=== PATIENT | male | born 1945 | race Caucasian/White ===

== ENCOUNTER 2020-08-15 12:45 | Inpatient (IN) ==
[2020-08-15] MEDS ORDERED: Ipratropium/Albuterol Neb 3 ML IH ONE (12:58)
[2020-08-15 13:15] LABS: Basophils % 0.3 %; Eosinophils # 0.1 K/mcL (0.0-0.6); Eosinophils % 0.8 %; Hematocrit 42.5 % (37.5-50.1); Hemoglobin 11.7 g/dL (12.9-16.9); Immature Granulocytes % 0.4 % (0-4); Lymphocytes # 1.2 K/mcL (0.6-4.6); Lymphocytes % 16.9 %; Mean Corpuscular HGB Conc 27.5 g/dL (31.6-35.5); Mean Corpuscular Hemoglobin 23.3 pg (28.0-33.3); Mean Corpuscular Volume 84.7 fL (83.0-100.0); Mean Platelet Volume 10.1 fL (9.4-12.4); Monocytes # 0.5 K/mcL (0.0-1.3); Monocytes % 6.7 %; Neutrophils # 5.4 K/mcL (1.6-8.9); Platelet Count 262 K/mcL (140-400); Red Blood Count 5.02 M/mcL (4.19-5.50); Red Cell Distribution Width 16.9 % (11.5-14.5); Segmented Neutrophils % 74.9 %; White Blood Count 7.2 K/mcL (4.3-11.1)
[2020-08-15 13:18] LABS: VBG HCO3 33 mEq/L (21-27); VBG PCO2 57 mmHg (41-51); VBG PH 7.37 pH Units (7.32-7.42); VBG PO2 87 mmHg (25-50)
[2020-08-15] MEDS ORDERED: Isovue-370 500 ML BOTTLE IVP ONE (13:31)
[2020-08-15 13:36] LABS: BUN/Creatinine Ratio 22 (6-26); Blood Urea Nitrogen 20 mg/dL (8-23); Calcium 9.2 mg/dL (8.6-10.3); Carbon Dioxide 32 mEq/L (23-29); Chloride 97 mEq/L (98-107); Glucose 106 mg/dL (70-105); Hypochromasia Present (Not Present); Osmolality,Calculated 287 (280-300); Platelet Estimate Normal (Normal); Potassium 4.6 mEq/L (3.5-5.1); Sodium 137 mEq/L (136-145); eGFR For African Americans > 60 (> 60); eGFR For Non-African Americans > 60 (> 60)
[2020-08-15 13:38] LABS: Troponin I < 0.03 ng/mL (< 0.04)
[2020-08-15 14:28] LABS: Adenovirus Not Detected (Not Detect); Bordetella Pertussis Not Detected (Not Detect); Chlamydophila pneumoniae Not Detected (Not Detect); Coronavirus 229E Not Detected (Not Detect); Coronavirus HKU1 Not Detected (Not Detect); Coronavirus NL63 Not Detected (Not Detect); Coronavirus OC43 Not Detected (Not Detect); Human Metapneumovirus Not Detected (Not Detect); Human Rhinovirus/Enterovirus Not Detected (Not Detect); Influenza A Subtype 2009 H1 Not Detected (Not Detect); Influenza B Not Detected (Not Detect); Mycoplasma pneumoniae Not Detected (Not Detect); Parainfluenza Virus 1 Not Detected (Not Detect); Parainfluenza Virus 2 Not Detected (Not Detect); Parainfluenza Virus 3 Not Detected (Not Detect); Parainfluenza Virus 4 Not Detected (Not Detect); Respiratory Syncytial Virus Not Detected (Not Detect); SARS-CoV-2 Not Detected (Not Detect)
[2020-08-15] MEDS ORDERED: Naloxone 0.4 MG/ML INJ IVP PRN (16:16)
[2020-08-15] MEDS ORDERED: Ondansetron 4 MG/2 ML VIAL IVP PRN (16:16)
[2020-08-15] MEDS ORDERED: *HR* Dextrose 50 % in Water (Vial) 50 ML VIAL IVP PRN (16:19)
[2020-08-15] MEDS ORDERED: D5% in Water 1,000 ML IVC PRN (16:19)
[2020-08-15] MEDS ORDERED: Dextrose Gel 15 GM/37.5 ML TUBE PO PRN ×2 (16:19)
[2020-08-15] MEDS ORDERED: Perflutren Lipid Microsphere 1.3 ML in 0.9 % Sodium Chloride 8.7 ML IVP PRN (16:57)
[2020-08-15] MEDS: Insulin LISPRO 300 UNITS/3 ML VIAL SUBQ SCH (17:30)
[2020-08-15] MEDS: *HR* OxyCODONE/APAP 10/325 TABLET PO SCH (17:37)
[2020-08-15] MEDS: Azithromycin 500 MG in 0.9 % Sodium Chloride 250 ML IVPB SCH (17:38)
[2020-08-15] MEDS: MethylPREDNISolone 40 MG/ML VIAL IVP SCH (17:38)
[2020-08-15] MEDS: *HR* Heparin 5,000 UNIT/ML VIAL SQ SCH (17:39)
[2020-08-15] MEDS: Gabapentin 300 MG CAPSULE PO SCH (20:28)
[2020-08-15] MEDS: Furosemide 20 MG/2 ML VIAL IVP SCH (20:28)
[2020-08-15] MEDS: traZODone 50 MG TABLET PO SCH (20:28)
[2020-08-15] MEDS: Budesonide/Formoterol 160/4.5 1 PUFF INH IH SCH (20:30)
[2020-08-15] MEDS: Ipratropium/Albuterol Neb 3 ML IH SCH ×2 (20:31→23:08)
[2020-08-16] MEDS: *HR* OxyCODONE/APAP 10/325 TABLET PO SCH ×5 (00:03→23:10)
[2020-08-16] MEDS: MethylPREDNISolone 40 MG/ML VIAL IVP SCH ×3 (00:04→17:32)
[2020-08-16] MEDS ORDERED: Methyl Salicylate/Menthol 85 APPL/85 GM TUBE TP PRN (00:15)
[2020-08-16] MEDS ORDERED: Methyl Salicylate/Menthol 57 APPL/57 GM TUBE TP PRN (00:17)
[2020-08-16] MEDS: Ipratropium/Albuterol Neb 3 ML IH SCH ×7 (03:50→23:17)
[2020-08-16 05:25] LABS: BUN/Creatinine Ratio 21 (6-26); Blood Urea Nitrogen 21 mg/dL (8-23); Carbon Dioxide 31 mEq/L (23-29); Chloride 93 mEq/L (98-107); Glucose 274 mg/dL (70-105); Magnesium 1.7 mg/dL (1.6-2.6); Osmolality,Calculated 287 (280-300); Phosphorous 3.2 mg/dL (2.7-4.5); Sodium 132 mEq/L (136-145); eGFR For African Americans > 60 (> 60); eGFR For Non-African Americans > 60 (> 60)
[2020-08-16] MEDS: *HR* Heparin 5,000 UNIT/ML VIAL SQ SCH ×2 (05:52→17:32)
[2020-08-16] MEDS: Gabapentin 300 MG CAPSULE PO SCH ×3 (09:14→20:22)
[2020-08-16] MEDS: DilTIAZem CD (24hr) 240 MG CAP.ER.24H PO SCH (09:15)
[2020-08-16] MEDS: Furosemide 20 MG/2 ML VIAL IVP SCH ×2 (09:15→20:27)
[2020-08-16] MEDS: Insulin LISPRO 300 UNITS/3 ML VIAL SUBQ SCH ×3 (09:24→17:36)
[2020-08-16] MEDS: Budesonide/Formoterol 160/4.5 1 PUFF INH IH SCH ×2 (11:05→19:45)
[2020-08-16] MEDS: Azithromycin 500 MG in 0.9 % Sodium Chloride 250 ML IVPB SCH (17:33)
[2020-08-16] MEDS: traZODone 50 MG TABLET PO SCH (20:22)
[2020-08-16] MEDS: Insulin DETEMIR 100 UNIT/ML X5UNITS SUBQ SCH (20:23)
[2020-08-17] MEDS: MethylPREDNISolone 40 MG/ML VIAL IVP SCH ×4 (01:15→23:44)
[2020-08-17] MEDS: Ipratropium/Albuterol Neb 3 ML IH SCH ×6 (03:47→23:24)
[2020-08-17] MEDS: *HR* Heparin 5,000 UNIT/ML VIAL SQ SCH ×2 (06:13→16:47)
[2020-08-17] MEDS: *HR* OxyCODONE/APAP 10/325 TABLET PO SCH ×4 (06:13→23:44)
[2020-08-17] MEDS: Budesonide/Formoterol 160/4.5 1 PUFF INH IH SCH ×2 (07:28→19:42)
[2020-08-17] MEDS: DilTIAZem CD (24hr) 240 MG CAP.ER.24H PO SCH (08:37)
[2020-08-17] MEDS: Gabapentin 300 MG CAPSULE PO SCH ×3 (08:37→21:33)
[2020-08-17] MEDS: Furosemide 20 MG/2 ML VIAL IVP SCH ×2 (08:38→21:33)
[2020-08-17] MEDS: Insulin LISPRO 300 UNITS/3 ML VIAL SUBQ SCH ×3 (08:39→16:40)
[2020-08-17] MEDS: Insulin DETEMIR 100 UNIT/ML X5UNITS SUBQ SCH ×2 (08:42→21:34)
[2020-08-17] MEDS: Azithromycin 500 MG in 0.9 % Sodium Chloride 250 ML IVPB SCH (16:41)
[2020-08-17] MEDS: traZODone 50 MG TABLET PO SCH (21:33)
[2020-08-18 02:27] LABS: Basophils % 0.1 %; Hematocrit 44.1 % (37.5-50.1); Hemoglobin 12.2 g/dL (12.9-16.9); Immature Granulocytes % 0.3 % (0-4); Lymphocytes # 0.3 K/mcL (0.6-4.6); Lymphocytes % 4.6 %; Mean Corpuscular HGB Conc 27.7 g/dL (31.6-35.5); Mean Corpuscular Hemoglobin 23.1 pg (28.0-33.3); Mean Corpuscular Volume 83.4 fL (83.0-100.0); Mean Platelet Volume 10.8 fL (9.4-12.4); Monocytes # 0.2 K/mcL (0.0-1.3); Monocytes % 3.1 %; Neutrophils # 6.7 K/mcL (1.6-8.9); Platelet Count 212 K/mcL (140-400); Red Blood Count 5.29 M/mcL (4.19-5.50); Red Cell Distribution Width 17.1 % (11.5-14.5); Segmented Neutrophils % 91.9 %; White Blood Count 7.3 K/mcL (4.3-11.1)
[2020-08-18 02:46] LABS: BUN/Creatinine Ratio 35 (6-26); Blood Urea Nitrogen 34 mg/dL (8-23); Carbon Dioxide 33 mEq/L (23-29); Chloride 95 mEq/L (98-107); Glucose 270 mg/dL (70-105); Magnesium 2.1 mg/dL (1.6-2.6); Osmolality,Calculated 297 (280-300); Phosphorous 3.7 mg/dL (2.7-4.5); Potassium 4.8 mEq/L (3.5-5.1); Sodium 135 mEq/L (136-145); eGFR For African Americans > 60 (> 60); eGFR For Non-African Americans > 60 (> 60)
[2020-08-18 03:30] LABS: Hypochromasia Present (Not Present); Platelet Estimate Normal (Normal)
[2020-08-18] MEDS: Ipratropium/Albuterol Neb 3 ML IH SCH ×4 (03:34→15:31)
[2020-08-18] MEDS: *HR* OxyCODONE/APAP 10/325 TABLET PO SCH ×3 (05:38→16:22)
[2020-08-18] MEDS: *HR* Heparin 5,000 UNIT/ML VIAL SQ SCH ×2 (05:38→16:29)
[2020-08-18] MEDS: Budesonide/Formoterol 160/4.5 1 PUFF INH IH SCH (07:24)
[2020-08-18] MEDS: Furosemide 20 MG/2 ML VIAL IVP SCH (07:58)
[2020-08-18] MEDS: MethylPREDNISolone 40 MG/ML VIAL IVP SCH ×2 (07:58→16:22)
[2020-08-18] MEDS: Gabapentin 300 MG CAPSULE PO SCH ×2 (07:58→16:22)
[2020-08-18] MEDS: DilTIAZem CD (24hr) 240 MG CAP.ER.24H PO SCH (07:58)
[2020-08-18] MEDS: Insulin DETEMIR 100 UNIT/ML X5UNITS SUBQ SCH (07:58)
[2020-08-18] MEDS: Insulin LISPRO 300 UNITS/3 ML VIAL SUBQ SCH ×3 (07:59→16:30)
[2020-08-18] MEDS ORDERED: *HR* Metoprolol 5 MG/5 ML VIAL IVP ONE ×2 (08:56→08:57)
[2020-08-18 11:04] VITALS: BP 145/78
[2020-08-18] MEDS: Azithromycin 500 MG in 0.9 % Sodium Chloride 250 ML IVPB SCH (16:23)
== END 2020-08-18 17:40 | disposition home or self-care (01) | DRG 190 ==
LOC: 2ANU 12:45 → EMEROOARM 12:45 → 2ANU 16:49 → SUATTDRO 08-16 13:00
PROVIDERS: ADMIT Internal Medicine; ATTEND Family Medicine